=== PATIENT | male | born 1980 | race Caucasian/White ===

== ENCOUNTER 2021-09-27 22:41 | Emergency (ER) | payer MEDICAID ==
[~2021-09-27] VITALS: Ht 167.6 cm; Wt 100.0 kg
[2021-09-28 00:40] VITALS: BP 130/85
== END 2021-09-28 00:42 | disposition home or self-care (01) ==
LOC: ER 22:41
DX: U07.1 COVID-19 (principal)
CPT/HCPCS: 71045; 93005; 99283